=== PATIENT | male | born 1980 | race Asian ===

== ENCOUNTER 2018-03-04 14:50 | Emergency (ER) | payer OTHER ==
[~2018-03-04] VITALS: Ht 170.2 cm; Wt 81.2 kg
[2018-03-04] MEDS ORDERED: TRIAMCINOLONE A80 G2 TOP (15:44)
== END 2018-03-04 16:18 | disposition home or self-care (01) ==
LOC: ER 14:50
DX: L30.9 Dermatitis, unspecified (principal); F17.210 Nicotine dependence, cigarettes, uncomplicated